=== PATIENT | male | born 1975 | race Caucasian/White ===

== ENCOUNTER 2017-04-23 15:51 | Inpatient (IN) | payer OTHER ==
[~2017-04-23] VITALS: Ht 182.9 cm; Wt 57.6 kg
--- NOTE | ~2017-04-23 | HC ---
[facility] [place] [address] CONSULTATION Name: CHELO HUANG Room #: [facility] IN M.R.#: [id number] Admission: 04/23/17 Attend Phys: Juan Pablo Jimenez MD Discharge: Date of : 73 Report #: [id number] THIS REPORT FOR: //name// CC: Juan Pablo Nicole DATE OF SERVICE: 04/24/2017 REASON FOR CONSULTATION: I was asked to evaluate concerning pneumonia and lung mass. HISTORY OF PRESENT ILLNESS: The patient was a 41-year-old tobacco user, about a month ago developed a cough diagnosed with pneumonia and treated with oral antibiotic therapy. Initially, felt better with less right chest pain and decrease in his sputum production. Although, his respiratory status has improved some, he has been anorexic and has had some nausea and vomiting. He has had 20-25 pounds of weight loss. Just does not feel well. His right chest discomfort has lessened. He has had no neurologic issues. No headache. He has had minimal soft stool. Denies any rash, adenopathy, arthritis, dysuria or frequency. He has had no hemoptysis. He denies any fever, chills or sweats. 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 No tuberculosis exposure. No travel outside the [place]. Lives with his sister, does smoke marijuana. ALLERGIES: None. MEDICATIONS: As noted on his MAR, now on azithromycin and ceftriaxone. PAST MEDICAL HISTORY: Unremarkable. FAMILY HISTORY: Noncontributory. SOCIAL HISTORY: As noted above, has minimal alcohol intake. REVIEW OF SYSTEMS: As noted above. PHYSICAL EXAMINATION: VITAL SIGNS: Afebrile and hemodynamically stable. GENERAL: He was alert and thin in stature. HEENT: Unremarkable. NECK: Supple, no adenopathy. LUNGS: Clear, without adventitial sounds. HEART: Regular, without murmur. ABDOMEN: Soft, nontender, no hepatosplenomegaly or mass. EXTREMITIES: Unremarkable. [facility] [address] [place] [address] CONSULTATION Name: [facility] Room #: [address] [place] [address] IN M.R.#: [id number] Admission: 04/23/17 Attend Phys: Juan Pablo Jimenez MD Discharge: Date of : 73 Report #: [id number] NEUROLOGIC: Normal. LABORATORY STUDIES: CT scan of the chest shows 4.6 x 2.6 cm lobulated mass in the right apex. There was no chest wall extension. Right hilar and left perihilar infiltrates. Bilateral hilar adenopathy. Mild pectus excavatum. Bilateral adrenal hypertrophy. CT of the abdomen, otherwise unremarkable. Sodium 135, potassium 3.2, bicarbonate 24, creatinine 0.9. Liver function test normal. Albumin at 2.5, hemoglobin 10.5, platelet count 321,000, white count 12.4, 74% segs, 11% lymphs, 14% monocytes. IgE level 281. Fungal serology is pending. Alpha-1 antitrypsin 305. Urinalysis is unremarkable. Blood cultures are negative to date. The patient was unable to produce sputum culture. 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 Recommend further evaluation including biopsy of the mass. PLAN: We will continue with antibiotic therapy and check HIV, TB screen, fungal serology screen and send tissue samples for pathology as well as cultures for bacteria, fungus and AFB. <ELECTRONICALLY SIGNED> By: Roman Mauricio MD 04/25/17 0936 [id number] Roman Mauricio MD /nt
--- NOTE | ~2017-04-23 | HC ---
[facility] [place] [address] CONSULTATION Name: CHELO HUANG Room #: [facility] IN M.R.#: [id number] Admission: 04/23/17 Attend Phys: Juan Pablo Jimenez MD Discharge: 04/27/17 Date of : 73 Report #: [id number] THIS REPORT FOR: //name// CC: Chely Nicole MD DATE OF SERVICE: 04/25/2017 REASON FOR CONSULTATION: Right lung mass with 25-pound weight loss concerning for cancer. HISTORY OF PRESENT ILLNESS: The patient is a very pleasant 41-year-old gentleman from the [facility] who has about a 6-week history of cough, feeling for poorly, 25-pound weight loss and anorexia, and also some shortness of air with no definite sputum. He says he feels hot all the time, does also have some discomfort over his lower ribs, mid sternal, and slightly to the right. PAST MEDICAL HISTORY: Really nothing. ALLERGIES: None known. MEDICATIONS: He had been on outpatient antibiotics. Medications here at this time, currently include azithromycin 500 mg q.24h., ceftriaxone 1 gram q. 24 hours, pantoprazole 40 daily, hydrocodone p.r.n., ipratropium and albuterol respiratory therapy q.4h., guaifenesin 600 b.i.d., Tylenol p.r.n., MiraLax 17 grams daily, nitroglycerin p.r.n., Zofran p.r.n., IV fluids. REVIEW OF SYSTEMS: The patient does not really have any headache, any vision troubles, any mouth sore troubles, any swallowing troubles. He denies any head trauma. No swallowing troubles, does have a cough, does not really bring much up, no blood, he has not had a bowel movement, he said, in quite a while, may be several weeks. No diarrhea, no dysuria, no blood in his urine or stool. No new ankle swelling, no new arm swelling. No skin rashes. PHYSICAL EXAMINATION: GENERAL: The patient appears his stated age. VITAL SIGNS: Height is 6 feet or 182.8 cm, weight is 127 pounds or 57.6 kilograms. Blood pressure is 105/66, O2 sat 95%, respirations 22, pulse 125, temperature 98.3, which is down from 100.2 two days ago. MOOD: The patient is slightly anxious, but alert and pleasant. NEUROLOGIC: Face appears symmetrical, is moving all extremities. [address] [address] CONSULTATION Name: [facility] Room #: [facility] IN M.R.#: [id number] Admission: 04/23/17 Attend Phys: Juan Pablo Jimenez MD Discharge: 04/27/17 Date of : 73 Report #: [id number] LUNGS: Had some slightly decreased sounds in the right with several soft rhonchi. LYMPHATICS: No enlarged lymph nodes in the supraclavicular, cervical, axillary or inguinal region. SKIN: He does have some slight tenderness in epigastric rib area. He says that it is worse with deep inspiration, not really worse with eating or drinking. ABDOMEN: Scaphoid, no organomegaly. Nontender. EXTREMITIES: Without clubbing, cyanosis or edema. LABORATORY DATA: Here shows a BUN of 10, creatinine 0.9. Liver functions normal, actually AST low, ALT was low, total protein 8.7, albumin 2.5. Coags were normal. White blood count 17.4 on admission, down to 12.4, hemoglobin 10.5, MCV 86.3, RDW 12.9, platelets 321, differential mostly normal. TSH 0.895, IgE 281 elevated, HIV nonreactive, multiple fungal and TB-type tests pending. UA appears to be negative. MICROBIOLOGY: At this point is negative. RADIOLOGIC IMAGING: Include CT chest, abdomen and pelvis with the finding of a lobulated mass involving the lateral right lung apex that is shown by chest ____ films. This measures 4.6 cm in length x 2.6 cm in thickness. Mild lobulation, abuts the pleural surface, but does not invade into the chest wall. Adjacent ribs are intact. Pulmonary windows reveal underlying chronic pulmonary changes compatible with history of smoking, mild left para-hilar infiltrates present, bilateral hilar adenopathy could be inflammatory or possibly malignant related. Note, there is narrowing of the right upper lobe bronchus. Mildly enlarged central lymph nodes suggested as well as subcarinal lymph nodes. CT of mediastinum unremarkable, does have pectus ____ deformity. Liver is intact. Gallbladder bile duct is normal. Pancreas and spleen are normal. Right adrenal mild hyperplasia. Left adrenal moderate to greater hyperplasia. No adrenal masses, kidneys normal, abdominal aorta normal, prostate is normal, bladder unremarkable, bone window normal. 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 He has been there for about 10 years, smokes about a pack per day for 25 years. No alcohol, no street drugs except for occasional marijuana. The patient also had a bone scan with large uptake in the anterolateral right frontal bone, no other areas in the axial skeleton. No abnormal bone activity present in the upper right chest. FAMILY HISTORY: Mother and father, no specific illnesses. He has 2 sisters, one has diabetes. One brother has a son who is a 22-year-old who is healthy. ASSESSMENT AND PLAN: [facility] [address] [place] [address] CONSULTATION Name: CHELO HUANG Room #: [facility] IN M.R.#: [id number] Admission: 04/23/17 Attend Phys: Juan Pablo Jimenez MD Discharge: 04/27/17 Date of : 73 Report #: [id number] 1. Right lung mass with fever and bronchial narrowing in the right. On the CT it was questionable frontal skull bone abnormality. Biopsy by CT guides ordered, planned for today. Await biopsy results, may be plan on PET scan as outpatient. 2. Fever and pulmonary infiltrate and 25-pound weight loss and cough. HIV negative, multiple fungal serologies negative. Continues antibiotics and cultures per Infectious Disease. 3. Frontal skull abnormality on bone scan. We will order MRI head. The patient aware. 4. Hilar and mediastinal adenopathy, infectious versus neoplastic. 5. Chest wall pain, inflammatory, continue opiates as needed. 6. Pulmonary infiltrate, possible pneumonia. Continues infection treatments. <ELECTRONICALLY SIGNED> By: Kwasi Nova MD 04/29/17 2116 0749 6 Kwasi Nova MD /darrel
--- NOTE | ~2017-04-23 | CNG ---
[facility] [place] [address] CYTO-NONGYN REPORT PROCEDURE Name: CHELO HUANG Room #: 408-P DIS IN M.R.#: [id number] Admission: 04/23/17 Date of : 73 Discharge: 04/27/17 Report #: [id number] Path Case #: [id number] CYTOPATHOLOGY REPORT COLLECTION DATE: 04/24/2017 RECEIVED DATE: 04/25/2017 SUBMITTING PHYS: Dr. Mami Caruso OTHER PHYS: Dr. Steven Jimenez CLINICAL HISTORY: Vomiting. SPECIMEN(S) RECEIVED: A.Sputum * * * * * * * * * * * * FINAL DIAGNOSIS: A. Sputum: - No malignant cells identified. Alveolar macrophages are present along with squamous epithelial cells. PATHOLOGIST: Cynthia Paz M.D. REPORT ELECTRONICALLY SIGNED BY: Cynthia Paz M.D. DATE/TIME: 04/28/2017 17:03 * * * * * * * * * * * * GROSS PATHOLOGY: A. Sputum: The specimen is submitted unfixed, labeled "Jyoti Chelo". Received by the Cytology Department is one mL of clear fluid. One ThinPrep slide was prepared. (clt 04.25.2017) OFFENSIVE COORDINATOR(S): KEN Dee([facility] INITIAL CPT CODE(S): A; 95065 Professional services performed by [facility] at [facility] [address] [facility] , [place] [address] Technical services performed by [facility] at [address] [place] [address]., [address], [place] [address]. [facility] [address] [place] [address], [facility] [address] [place] [address] PHONE: [phone] [facility] [address] [place] [address] CYTO-NONGYN REPORT PROCEDURE Name: CHELO HUANG Room #: 408-P DIS IN M.R.#: [id number] Admission: 04/23/17 Date of : 73 Discharge: 04/27/17 Report #: [id number] Path Case #: [id number] DIRECTOR: Farhat Jones M.D. * * * END OF REPORT * * *
--- NOTE | ~2017-04-23 | S ---
[facility] [place] [address] SURGICAL PATH RPT PROCEDURE Name: CHELO MONTES Room #: [facility]- DIS IN M.R.#: [id number] Admission: 04/23/17 Date of : 73 Discharge: 04/27/17 Report #: [id number] Path Case #: [id number] PATHOLOGY REPORT COLLECTION DATE: 04/25/2017 RECEIVED DATE: 04/25/2017 SUBMITTING PHYS: Dr. Mami Caruso OTHER PHYS: Dr. 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 - Benign skeletal muscle also present. (CLW:fernando; 04/29/2017) COMMENT: Properly controlled immunohistochemical stains are performed. Block A1: TTF-1 - Tumor cells reactive P40 - Tumor cells nonreactive The H and E stained slides are co-reviewed with Dr. Cynthia Paz. Clinical and radiographic correlation is recommended. The case was discussed with Dr. Hemant Caruso on 04/29/2017 at 3:10 PM. (CLW:fernando; 04/29/2017) PATHOLOGIST: Zully Rios M.D. REPORT ELECTRONICALLY SIGNED BY: Zully Rios M.D. DATE/TIME: 04/29/2017 15:17 * * * * * * * * * * * * GROSS PATHOLOGY: Received in formalin labeled "Chelo Montes, right lung biopsy" is a specimen consisting of multiple cylindrical cores of white-zaidi soft tissue which measure in aggregate 1.0 x 0.5 x 0.1 cm and range from 0.1 cm to 0.8 cm in length and measure 0.1 cm in diameter. The specimen is submitted entirely in cassette A1. ([facility]; 04/26/2017) CLINICAL HISTORY: Abdominal pain, weight loss, right lung mass. [facility] [place] [address] SURGICAL PATH RPT PROCEDURE Name: CHELO MONTES Room #: 408-P [facility] IN M.R.#: [id number] Admission: 04/23/17 Date of : 73 Discharge: 04/27/17 Report #: [id number] Path Case #: [id number] INITIAL CPT CODE(S): A; 21802, 60911, 97650 Professional services performed by [facility] at [address] , [place] [address] Technical services performed by [facility] at [address] [place] [address], [facility] [address] [address]. [facility] [place] [address] PHONE: [phone] DIRECTOR: Farhat Jones M.D. * * * END OF REPORT * * *
--- NOTE | ~2017-04-23 | HC ---
[facility] [place] [address] CONSULTATION Name: CHELO HUANG Room #: [facility]- ADM IN M.R.#: [id number] Admission: 04/23/17 Attend Phys: Juan Pablo Jimenez MD Discharge: Date of : 73 Report #: [id number] THIS REPORT FOR: //name// CC: Juan Pablo Nicole DATE OF SERVICE: 04/24/2017 REASON FOR CONSULTATION: Lung mass. IMPRESSION: 1. Lung mass, question etiology. 2. Pulmonary infiltrate. 3. Chest/abdominal pain. 4. Hilar and central mediastinal adenopathy. 5. Adrenal hyperplasia, left greater than right. 6. Chest pain. 7. Bullous lung disease/emphysema. PLAN: 1. Treat with antibiotics. We will check a bone scan to check if he has any rib lesions. We will do a needle biopsy in a.m. 2. If stabilizes, we will discharge and follow up in office and may need PET scan. HISTORY OF PRESENT ILLNESS: A 41-year-old male relates he has been sick for about a month, cough, shortness of breath. No definite sputum. Had fever, chills. Has not been able to eat for about a month. Relates has lost about 25 pounds. Tender sternum and right ribs as well, less so left ribs. PAST MEDICAL HISTORY: None known. ALLERGIES: None known. MEDICATIONS: He does not recall the antibiotics he was on. FAMILY HISTORY: Noncontributory. SOCIAL HISTORY: Positive tobacco. Negative ETOH. Positive marijuana. No other drugs. REVIEW OF SYSTEMS: Cough, weight loss, fever, chills, constipation, shortness of breath. PHYSICAL EXAMINATION: VITAL SIGNS: T-max 100.2, pulse 100, respiration ____, BP 108/70. [facility] [address] [place] [address] CONSULTATION Name: CHELO HUANG Room #: 408-P [facility] IN .R.#: [id number] Admission: 04/23/17 Attend Phys: Juan Pablo Jimenez MD Discharge: Date of : 73 Report #: [id number] EYES: Negative icterus. No Bruce sign. NECK: Trachea midline. I did not feel any definite nodes in the neck. LUNGS: Coarse. HEART: Regular, tachycardic. ABDOMEN: Bowel sounds present. EXTREMITIES: Showed no edema. We will follow closely with you. By: [id number] Mami Caruso MD /nt
[2017-04-23 15:52] VITALS: BP 120/78
[2017-04-23 16:15] LABS: HEMATOCRIT 39.5 % (42.0-52.0); HEMOGLOBIN 13.3 gm/dL (14.0-18.0); MCH 28.5 pg (26.0-34.0); MCHC 33.6 g/dL (28.0-37.0); MCV 84.9 fL (80.0-100.0); PLATELET COUNT 373 thou/uL (150-400); RBC 4.65 mil/uL (4.50-6.00); RDW 12.9 % (10.5-14.5); WBC 17.4 thou/uL (4.0-11.0)
[2017-04-23 16:17] LABS: MANUAL DIFF YES
[2017-04-23 16:22] LABS: CALCIUM 9.5 mg/dL (8.5-10.1); POTASSIUM 3.8 mmol/L (3.5-5.1)
[2017-04-23 16:28] LABS: ALBUMIN 2.5 g/dL (3.4-5.0); DIRECT BILIRUBIN 0.2 mg/dL (<0.1-0.3); TOTAL BILIRUBIN 0.7 mg/dL (<0.1-1.0); TOTAL PROTEIN 8.7 g/dL (6.4-8.2)
[2017-04-23 16:33] LABS: ABSOLUTE NEUTROPHILS 12.9 thou/uL (1.4-8.2); ANISOCYTOSIS 1+; TOTAL CELL COUNT 100
[2017-04-23 16:34] LABS: POLYCHROMASIA OCCASIONAL
[2017-04-23 18:10] LABS: URINE BILIRUBIN 1+ (Negative); URINE BLOOD 1+ (Negative); URINE COLOR YELLOW; URINE GLUCOSE-RANDOM* NEGATIVE (Negative); URINE KETONES 1+ (Negative); URINE NITRITE NEGATIVE (Negative); URINE PROTEIN (DIPSTICK) TRACE (Negative)
[2017-04-23 18:12] LABS: ICTOTEST (BILI CONFIRMATORY) Negative (Negative)
[2017-04-23 18:20] LABS: BACTERIA 1-9 Few /HPF (None Seen); CASTS None Seen /LPF (None Seen); CRYSTALS None Seen /LPF (None Seen); SQUAMOUS 0-3 Few /LPF (0-3); URINE RBC 0-2 Rare /HPF (0-2); URINE WBC 0-5 Rare /HPF (0-5)
[2017-04-23 19:23] LABS: APTT 31.8 Seconds (24.5-32.8); INR 1.1; PROTIME 11.3 Seconds (9.3-11.4)
[2017-04-23 19:42] VITALS: BP 113/75
[2017-04-23 19:58] VITALS: BP 110/74
[2017-04-23 20:45] VITALS: BP 113/73
[2017-04-23 23:26] VITALS: BP 102/69
[2017-04-24 03:39] VITALS: BP 108/68
[2017-04-24 06:12] LABS: HEMATOCRIT 32.1 % (42.0-52.0); MCH 28.3 pg (26.0-34.0); MCHC 32.8 g/dL (28.0-37.0); MCV 86.3 fL (80.0-100.0); RBC 3.72 mil/uL (4.50-6.00); RDW 12.9 % (10.5-14.5); WBC 12.4 thou/uL (4.0-11.0)
[2017-04-24 06:14] LABS: HEMOGLOBIN 10.5 gm/dL (14.0-18.0)
[2017-04-24 06:26] LABS: CALCIUM 8.3 mg/dL (8.5-10.1); CREATININE 0.9 mg/dL (0.7-1.3); POTASSIUM 3.2 mmol/L (3.5-5.1)
[2017-04-24 07:13] LABS: ALPHA-1-ANTITRYPSIN 305 mg/dL (90-200)
[2017-04-24 16:10] LABS: HIV ANTIBODY Non Reactive (Non Reactive)
[2017-04-24 21:29] VITALS: BP 105/67
[2017-04-24 23:48] VITALS: BP 105/66
[2017-04-25] VITALS (15 sets, daily range): BP systolic 99–112; BP diastolic 61–76
[2017-04-25 08:14] LABS: HEMATOCRIT 32.8 % (42.0-52.0); HEMOGLOBIN 10.9 gm/dL (14.0-18.0); MCH 28.6 pg (26.0-34.0); MCHC 33.2 g/dL (28.0-37.0); MCV 86.1 fL (80.0-100.0); PLATELET COUNT 345 thou/uL (150-400); WBC 11.2 thou/uL (4.0-11.0)
[2017-04-25 08:21] LABS: MANUAL DIFF YES
[2017-04-25 08:32] LABS: CALCIUM 8.8 mg/dL (8.5-10.1); CREATININE 0.8 mg/dL (0.7-1.3); POTASSIUM 3.7 mmol/L (3.5-5.1)
[2017-04-25 10:14] LABS: ABSOLUTE NEUTROPHILS 8.7 thou/uL (1.4-8.2); TOTAL CELL COUNT 100
[2017-04-25 10:15] LABS: ANISOCYTOSIS SLIGHT
[2017-04-26 03:47] VITALS: BP 108/68
[2017-04-26 08:08] VITALS: BP 103/65
[2017-04-26] MEDS ORDERED: LEVAQUIN 750 M750 MG PO (10:19)
[2017-04-26] MEDS ORDERED: HYDROCODON-ACE1 EAC7 PO (10:20)
[2017-04-26 10:50] LABS: HEMATOCRIT 35.3 % (42.0-52.0); HEMOGLOBIN 11.8 gm/dL (14.0-18.0); MCH 28.7 pg (26.0-34.0); MCHC 33.5 g/dL (28.0-37.0); MCV 85.8 fL (80.0-100.0); PLATELET COUNT 389 thou/uL (150-400); RBC 4.12 mil/uL (4.50-6.00); WBC 11.7 thou/uL (4.0-11.0)
[2017-04-26 10:51] LABS: MANUAL DIFF YES
[2017-04-26 11:08] LABS: ABSOLUTE NEUTROPHILS 9.6 thou/uL (1.4-8.2); ALBUMIN 2.1 g/dL (3.4-5.0); ALKALINE PHOSPHATASE 90 U/L (46-116); ANION GAP 6 mmol/L (7-16); ANISOCYTOSIS 1+; BUN 6 mg/dL (7-18); CHLORIDE 98 mmol/L (98-107); CO2 28 mmol/L (21-32); CREATININE 0.8 mg/dL (0.7-1.3); GLUCOSE 100 mg/dL (74-106); POLYCHROMASIA OCCASIONAL; SGOT 9 U/L (15-37); SGPT 7 U/L (30-65); SODIUM 132 mmol/L (136-145); TOTAL BILIRUBIN 0.4 mg/dL (<0.1-1.0); TOTAL CELL COUNT 100; TOTAL PROTEIN 7.4 g/dL (6.4-8.2); TROPONIN-I < 0.04 ng/mL (<0.04-0.07)
[2017-04-26 18:06] LABS: BLASTOMYCES-IMMUNODIFF Negative (Neg:<1:1); HISTOPLASMA-IMMUNODIFF Negative (Neg:<1:1)
[2017-04-26 19:04] VITALS: BP 97/67
[2017-04-27 05:26] VITALS: BP 100/65
[2017-04-27 09:57] LABS: NIL (NEGATIVE) CONTROL SPOT CT 0; PANEL A SPOT CT 0; PANEL B SPOT CT 0; POSITIVE CONTROL SPOT COUNT > 20; T-SPOT.TB Negative
[2017-04-27 10:38] VITALS: BP 100/65
[2017-04-27 14:10] LABS: ASPERGILLUS FLAVUS-ID Negative (Neg:<1:1); ASPERGILLUS FUMIGATUS-ID Negative (Neg:<1:1); ASPERGILLUS NIGER-ID Negative (Neg:<1:1)
== END 2017-04-27 16:05 | disposition home or self-care (01) | DRG 871 ==
LOC: ER 15:51 → 4N 19:03 → EROBS 19:03 → 4N 20:11
PROVIDERS: Emergency Medicine; Hospitalist; Internal Medicine Pulmonary Disease; Nurse Practitioner Family; Specialist
PROC: 0BBK3ZX Excision of Right Lung, Percutaneous Approach, Diagnostic (ICD-10-PCS; principal; 2017-04-25)
DX: A41.9 Sepsis, unspecified organism (principal); J18.9 Pneumonia, unspecified organism; E43 Unspecified severe protein-calorie malnutrition; Z68.1 Body mass index [BMI] 19.9 or less, adult; D72.829 Elevated white blood cell count, unspecified; R59.0 Localized enlarged lymph nodes; F17.210 Nicotine dependence, cigarettes, uncomplicated; E27.8 Other specified disorders of adrenal gland; J43.9 Emphysema, unspecified; F12.90 Cannabis use, unspecified, uncomplicated; Z83.3 Family history of diabetes mellitus
CPT/HCPCS: 10091

== ENCOUNTER 2017-11-19 13:17 | Emergency (ER) | payer OTHER ==
[~2017-11-19] VITALS: Ht 182.9 cm; Wt 54.4 kg
[~2017-11-19 13:17] MED LIST: HYDROCODON-ACE1 EAC7 PO; LEVAQUIN 750 M750 MG PO
[2017-11-19] MEDS ORDERED: DEXAMETHASONE0.5 MG PO (13:35)
[2017-11-19] MEDS ORDERED: MS CONTIN15 MG PO (13:35)
[2017-11-19] MEDS ORDERED: OXYCONTIN10 M1 PO (13:35)
[2017-11-19] MEDS ORDERED: SENNA S TABLET1 EACH PO (14:57)
[2017-11-19] MEDS ORDERED: MIRALAX17 GM PO (14:57)
[2017-11-19 16:30] VITALS: BP 144/100
== END 2017-11-19 16:32 | disposition home or self-care (01) ==
LOC: ER 13:17
DX: K59.00 Constipation, unspecified (principal); F17.210 Nicotine dependence, cigarettes, uncomplicated